=== PATIENT | male | born 1990 | race Native Hawaiian/Other Pacific Islander ===

== ENCOUNTER 2017-02-03 18:56 | Emergency (ER) | payer OTHER ==
[2017-02-03 19:02] VITALS: BMI 36.4
[2017-02-03 19:12] VITALS: RESP 17; TEMP 98.6; O2SAT 100
[2017-02-03] MEDS ORDERED: Sodium Chloride 0.9% 1,000 ML IV STA (19:25)
--- NOTE | 2017-02-03 19:29 | ED PDOC ---
Arrival/HPI - General Time Seen by Provider: 02/03/17 18:57 Historian: Patient - History of Present Illness Narrative History of Present Illness (Text): 02/03/17 19:17 A 26 year old male, whose past medical history includes hypertension, presents to the emergency department complaining of right upper abdominal pain for the past few days. Patient reports he began experiencing left sided chest heaviness causing him to come in for further evaluation. Patient denies any relieving or exacerbating factors. Patient notes mild nausea but denies any fever, chills, vomiting, diarrhea, diarrhea, urinary symptoms, back pain, shortness of breath, headache, dizziness or any other complaints. PMD: Dr. Morley Time/Duration: < week Symptom Course: Unchanged Quality: Other Context: Other Past Medical History - Provider Review Nursing Documentation Reviewed: Yes Family/Social History - Physician Review Nursing Documentation Reviewed: Yes Family/Social History: No Known Family HX Allergies/Home Meds Allergies/Adverse Reactions: Allergies FISH Allergy (Verified 02/03/17 19:02) RASH Home Medications: Home Meds Medication Instructions Recorded Confirmed amLODIPine [Norvasc] 5 mg PO DAILY 02/03/17 02/03/17 Review of Systems - Physician Review All systems were reviewed & negative as marked: Yes - Review of Systems Constitutional: absent: Fevers, Night Sweats Respiratory: SOB Cardiovascular: Chest Pain Gastrointestinal: Abdominal Pain, Nausea. absent: Diarrhea, Vomiting Genitourinary Male: absent: Dysuria, Frequency, Hematuria, Urinary Output Changes Musculoskeletal: absent: Back Pain Neurological: absent: Headache, Dizziness Physical Exam Vital Signs Reviewed: Yes Vital Signs Temp Pulse Resp BP Pulse Ox 02/03/17 21:25 85 17 144/78 100 02/03/17 19:10 98.6 F 95 H 17 139/84 100 Temperature: Afebrile Blood Pressure: Normal Pulse: Tachycardic Respiratory Rate: Normal Appearance: Positive for: Well-Appearing, Non-Toxic, Comfortable Pain Distress: None Mental Status: Positive for: Alert and Oriented X 3 - Systems Exam Head: Present: Atraumatic, Normocephalic Pupils: Present: PERRL Conjunctiva: Present: Normal Mouth: Present: Moist Mucous Membranes Pharnyx: Present: Normal. No: ERYTHEMA Neck: Present: Normal Range of Motion Respiratory/Chest: Present: Clear to Auscultation, Good Air Exchange. No: Respiratory Distress, Accessory Muscle Use Cardiovascular: Present: Regular Rate and Rhythm, Normal S1, S2. No: Murmurs Abdomen: Present: Tenderness (Right upper quadrant tenderness to palpation), Normal Bowel Sounds. No: Distention, Peritoneal Signs, Rebound, Guarding Back: Present: Normal Inspection Upper Extremity: Present: Normal Inspection. No: Cyanosis, Edema Lower Extremity: Present: Normal Inspection. No: Edema Neurological: Present: GCS=15, CN II-XII Intact, Speech Normal Skin: Present: Warm, Dry, Normal Color. No: Rashes Psychiatric: Present: Alert, Oriented x 3, Normal Insight, Normal Concentration Medical Decision Making ED Course and Treatment: 02/03/17 19:17 Impression: A 26 year old male with right upper abdominal pain and left sided chest heaviness. Patient notes nausea but denies any other complaints. Differential: GERD vs Anxiety vs PE vs Pneumonia vs muscular pain Plan: -- Abdomen ultrasound -- Chest xray -- EKG -- Labs -- Urinalysis -- Pepcid, Toradol, Zofran and IV fluids -- Reassess and disposition Progress Notes: EKG shows NSR at 92 BPM with normal intervals, normal axis, no ST/T changes. Interpreted by me. 02/03/17 20:06 Abdomen ultrasound read and interpreted by me, which shows a fatty liver otherwise negative. Report Date : 02/03/2017 20:53:00 EXAM: US Abdomen Complete Dictated By: Delmy Fournier MD IMPRESSION: Fatty infiltration of the liver. Otherwise negative exam. No evidence of gallstones or cholecystitis. 02/03/17 21:48 Patient with noted history with unremarkable vitals and EKG. He had some mild RUQ tenderness but sono showing no acute findings. Labs with mild leukocytosis but otherwise unremarkable, including normal d-dimer. Etiology is highly unlikely to be cardiopulmonary in nature. It is less likely muscular, given nausea, RUQ pain, and mild leukocytosis; he reports resolution of his symptoms. Will d/c on zantac and bland diet and follow up pmd. - Lab Interpretations Lab Results: 02/03/17 19:30 02/03/17 19:30 Lab Results 02/03/17 19:30: Urine Opiates Screen Negative, Urine Methadone Screen Negative, Ur Barbiturates Screen Negative, Ur Phencyclidine Scrn Negative, Ur Amphetamines Screen Negative, U Benzodiazepines Scrn Negative, U Oth Cocaine Metabols Negative, U Cannabinoids Screen Negative 02/03/17 19:30: PT 11.1, INR 1.03, APTT 28.8, D-Dimer, Quantitative 0.21 02/03/17 19:30: Sodium 137, Potassium 4.0, Chloride 100, Carbon Dioxide 25, Anion Gap 16, BUN 10, Creatinine 0.9, Est GFR ( Amer) > 60, Est GFR (Non- Af Amer) > 60, Random Glucose 99, Calcium 9.8, Magnesium 2.2, Total Bilirubin 0.7, AST 29, ALT 44, Alkaline Phosphatase 106, Lactate Dehydrogenase 398, Total Creatine Kinase 144, Troponin I < 0.01, Total Protein 8.3, Albumin 4.7, Globulin 3.6, Albumin/Globulin Ratio 1.3, Lipase 102 02/03/17 19:30: Urine Color Light yellow, Urine Appearance Clear, Urine pH 6.5, Ur Specific [place] <= 1.005, Urine Protein Negative, Urine Glucose (UA) Negative, Urine Ketones Negative, Urine Blood Negative, Urine Nitrate Negative, Urine Bilirubin Negative, Urine Urobilinogen 0.2, Ur Leukocyte Esterase Negative 02/03/17 19:30: WBC 13.4 H, RBC 5.05, Hgb 15.3, Hct 44.5, MCV 88.1, MCH 30.3, MCHC 34.4, RDW 12.4, Plt Count 281, MPV 10.3, Gran % 72.3 H, Lymph % (Auto) 20.0 L, [place] % (Auto) 4.2, Eos % (Auto) 3.1, Baso % (Auto) 0.4, Gran # 9.66 H, Lymph # 2.7, [place] # 0.6, Eos # 0.4, Baso # 0.05 I have reviewed the lab results: Yes - RAD Interpretation Narrative RAD Interpretations (Text): 02/03/17 21:50 CXR: nad as read by me. Radiology Orders: 02/03/17 19:21 CHEST TWO VIEWS (PA/LAT) [RAD] Stat 02/03/17 19:24 ABDOMEN COMPLETE [US] Stat - Medication Orders Current Medication Orders: Discontinued Medications Famotidine (Pepcid) 20 mg IVP STAT STA Stop: 02/03/17 19:25 Last Admin: 02/03/17 20:25 Dose: 20 mg Sodium Chloride (Sodium Chloride 0.9%) 1,000 mls @ 999 mls/hr IV .Q1H1M STA Stop: 02/03/17 20:25 Last Admin: 02/03/17 20:25 Dose: 999 mls/hr Ketorolac Tromethamine (Toradol) 30 mg IVP STAT STA Stop: 02/03/17 19:26 Last Admin: 02/03/17 20:24 Dose: 30 mg Ondansetron HCl (Zofran Inj) 4 mg IVP STAT STA Stop: 02/03/17 19:25 Last Admin: 02/03/17 20:24 Dose: 4 mg - Scribe Statement The provider has reviewed the documentation as recorded by the Linn Meyers Provider Scribe Attestation: All medical record entries made by the Scribe were at my direction and personally dictated by me. I have reviewed the chart and agree that the record accurately reflects my personal performance of the history, physical exam, medical decision making, and the department course for this patient. I have also personally directed, reviewed, and agree with the discharge instructions and disposition. Disposition/Present on Arrival - Present on Arrival Any Indicators Present on Arrival: No - Disposition Have Diagnosis and Disposition been Completed?: Yes Diagnosis: Atypical chest pain Disposition: HOME/ ROUTINE Disposition Time: 21:55 Patient Plan: Discharge Condition: GOOD Discharge Instructions (ExitCare): Chest Pain (ED), Diet for Ulcers and Gastritis (ED) Additional Instructions: Avoid spicy, greasy, and fatty foods. Take the zantac as prescribed. Follow up with your primary care doctor. Return to the emergency department if any new concerning symptoms. Prescriptions: Ranitidine HCl [Zantac] 1 tab PO BID #30 tablet Referrals: Mark Morley MD [Primary Care Provider] - Follow up with primary
[2017-02-03 19:56] LABS: PH,URINE 6.5 (4.7-8.0); URINE BILIRUBIN NEGATIVE (NEGATIVE); URINE BLOOD NEGATIVE (NEGATIVE); URINE GLUCOSE (UA) NEGATIVE (NEGATIVE); URINE KETONE NEGATIVE (NEGATIVE); URINE LEUKOCYTE ESTERASE NEGATIVE Leu/uL (NEGATIVE); URINE PROTEIN NEGATIVE mg/dL (<30 mg/dL); URINE UROBILINOGEN 0.2 E.U./dL (<1 E.U./dL)
[2017-02-03 20:01] LABS: ADD MANUAL DIFF? NO
[2017-02-03 20:09] LABS: URINE APPEARANCE CLEAR (CLEAR); URINE COLOR LIGHT YELLOW (YELLOW)
[2017-02-03 20:10] LABS: BASO # 0.05 K/mm3 (0.0-2.0); BASO % 0.4 % (0.0-3.0); EOS # 0.4 (0.0-0.7); EOS % 3.1 % (1.5-5.0); GRAN # 9.66 (1.4-6.5); GRAN % 72.3 % (50.0-68.0); HEMATOCRIT 44.5 % (42.0-52.0); LYMPH # 2.7 (1.2-3.4); MEAN CELL VOLUME 88.1 fL (80.0-105.0); MEAN CORPUSCULAR HEMOGLOBIN 30.3 pg (25.0-35.0); MEAN CORPUSCULAR HGB CONC 34.4 g/dl (31.0-37.0); MEAN PLATELET VOLUME 10.3 fl (7.0-11.0); MONO # 0.6 (0.1-0.6); MONO % 4.2 % (1.0-6.0); PLATELET COUNT 281 10^3/uL (120.0-450.0); RED CELL DISTRIBUTION WIDTH 12.4 % (11.5-14.5); WHITE BLOOD COUNT 13.4 10^3/ul (4.5-11.0)
[2017-02-03 20:27] LABS: ALB/GLOB RATIO 1.3 (1.1-1.8); ALKALINE PHOSPHATASE 106 U/L (38-133); ALT/SGPT 44 U/L (7-56); AST/SGOT 29 U/L (15-59); BILIRUBIN,TOTAL 0.7 mg/dL (0.2-1.3); BLOOD UREA NITROGEN 10 mg/dL (7-21); CALCIUM 9.8 mg/dL (8.4-10.5); CARBON DIOXIDE 25 mmol/L (21-33); CHLORIDE 100 mmol/L (98-107); GFR AFRICAN-AMERICAN > 60; GLUCOSE,RANDOM 99 mg/dL (70-110); LIPASE 102 U/L (23-300); MAGNESIUM 2.2 mg/dL (1.7-2.2); SODIUM 137 mmol/L (132-148); TOTAL PROTEIN 8.3 g/dL (5.8-8.3)
[2017-02-03 20:36] LABS: INR 1.03 (0.93-1.08); PARTIAL THROMBOPLASTIN TIME 28.8 Seconds (23.7-30.8)
[2017-02-03 20:38] LABS: TROPONIN I < 0.01 ng/mL
[2017-02-03 20:47] LABS: D DIMER 0.21 mg/L FEU (0-0.50)
--- NOTE | 2017-02-03 20:53 | US ---
EXAM: US Abdomen Complete CLINICAL HISTORY: 26 years old, male; Pain; Abdominal pain; Additional info: Ruq abd pain TECHNIQUE: Real-time ultrasound of the abdomen (complete) with image documentation. EXAM DATE/TIME: 02/03/2017 7:24 PM COMPARISON: No relevant prior studies available. FINDINGS: Gallbladder: Within normal limits in appearance, without evidence of gallstones, significant gallbladder wall thickening, or pericholecystic fluid. Reportedly negative sonographic Gonzales's sign. Common bile duct: Does not appear abnormally dilated, measuring less than 6 mm in diameter. Liver: Demonstrates diffusely increased parenchymal echogenicity, most compatible with fatty infiltration. Otherwise within normal limits in appearance. Measures 14.9 cm in length. Normal flow seen in the main portal vein on color and Doppler imaging. Pancreas: Incompletely seen due to gas. Imaged portions appear unremarkable. Right kidney: Within normal limits in appearance. .Measures 11.7 cm in length. No evidence of hydronephrosis. Left kidney: Within normal limits in appearance. Measures 12 cm in length. No evidence of hydronephrosis. Spleen: Within normal limits in appearance. Measures 11 cm in length. Aorta: Imaged portions appear unremarkable. Flow is seen on color and Doppler imaging IVC: Within normal limits in appearance. Flow is seen on color and Doppler imaging. IMPRESSION: Fatty infiltration of the liver. Otherwise negative exam. No evidence of gallstones or cholecystitis. See above for remaining findings.
[2017-02-03 21:27] VITALS: BP 144/78; PULSE 85
--- NOTE | 2017-02-04 08:10 | RAD ---
HISTORY: Chest pain COMPARISON: No prior. TECHNIQUE: Chest PA and lateral FINDINGS: LUNGS: The lungs are well inflated and clear. PLEURA: No significant pleural effusion identified. No pneumothorax apparent. CARDIOVASCULAR: Normal. OSSEOUS STRUCTURES: No significant abnormalities. VISUALIZED UPPER ABDOMEN: Normal. OTHER FINDINGS: None. IMPRESSION: No active pulmonary disease.
--- NOTE | 2017-02-04 10:40 | CARD ---
APPROVED REPORT EKG Measurement Heart [id number] <Conclusion> Normal sinus rhythm Normal ECG
== END 2017-02-03 21:59 | disposition home or self-care (01) ==
LOC: ED 18:56
DX: R07.89 Other chest pain (principal); I10 Essential (primary) hypertension
CPT/HCPCS: 71020; 76700; 80053; 81003; 82550; 83615; 83690; 83735; 84484; 85025; 85378; 85610; 85730; 93005; 96361; 96374; 96375; 99283; G0480; J1885; J2405; J7040